=== PATIENT | male | born 2005 | race Caucasian/White ===

== ENCOUNTER 2024-08-08 10:29 | Emergency (ER) | payer SELFPAY ==
[~2024-08-08] VITALS: Ht 190.5 cm; Wt 176.9 kg
[2024-08-08] MEDS ORDERED: Ketorolac Tromethamine 30mg Vial IM ONE (11:30)
[2024-08-08] MEDS ORDERED: Dexamethasone Sod Phos 10 MG/ML 1ML VIAL PO ONE (11:30)
[2024-08-08] MEDS ORDERED: Penicillin G Benzathine 1.2 MMU / 2 ML SYR IM ONE (11:30)
[2024-08-08 11:59] LABS: CORONAVIRUS COVID-19 AG Negative (NEGATIVE); INFLUENZA A AG Negative (NEGATIVE); INFLUENZA B AG Negative (NEGATIVE)
== END 2024-08-08 11:54 | disposition home or self-care (01) ==
LOC: ER 10:29
PROVIDERS: Student in an Organized Health Care Education/Training Program
DX: J02.0 Streptococcal pharyngitis (principal)
CPT/HCPCS: 87428-QW; 87430; 96372; 99283-25; J0561; J1100; J1885